=== PATIENT | female | born 2000 | race Hispanic/Latino ===

== ENCOUNTER 2023-09-05 10:42 | Emergency (ER) | payer MEDICAID, OTHER ==
[~2023-09-05] VITALS: Ht 154.9 cm; Wt 44.0 kg
[2023-09-05 11:01] VITALS: BP 115/79; PULSE 90; RESP 16; O2SAT 100
[2023-09-05] MEDS ORDERED: PREDNISONE 20 MG TABLET PO ONE (11:30)
[2023-09-05] MEDS ORDERED: PRED20TA3 PO (11:31)
[2023-09-05] MEDS ORDERED: ERYT1OIN7 OP (11:31)
== END 2023-09-05 11:45 | disposition home or self-care (01) ==
LOC: EDH 10:42
DX: H05.223 Edema of bilateral orbit (principal); Z79.899 Other long term (current) drug therapy

== ENCOUNTER 2023-12-05 00:35 | Emergency (ER) | payer OTHER ==
[~2023-12-05] VITALS: Ht 157.5 cm; Wt 45.4 kg
[~2023-12-05 00:35] MED LIST: ERYT1OIN7 OP; PRED20TA3 PO
[2023-12-05] MEDS: DiphenhydrAMINE HCL 50 MG/ML VIAL IV ONE (03:18)
[2023-12-05] MEDS ORDERED: EPIN0.3P3 IJ (03:39)
[2023-12-05] MEDS ORDERED: CETI10CA5 PO (03:39)
[2023-12-05] MEDS ORDERED: CEPH500T PO (03:39)
[2023-12-05] MEDS: CEPHALEXIN 500 MG CAPSULE PO ONE (04:03)
[2023-12-05 04:13] VITALS: BP 113/69; PULSE 78; RESP 18; O2SAT 100
== END 2023-12-05 04:15 | disposition home or self-care (01) ==
LOC: EDH 00:35
DX: T78.49XA Other allergy, initial encounter (principal); Z79.899 Other long term (current) drug therapy; X58.XXXA Exposure to other specified factors, initial encounter
CPT/HCPCS: 99283; 96374; J1200

== ENCOUNTER 2024-04-21 06:24 | Emergency (ER) | payer OTHER ==
[~2024-04-21] VITALS: Ht 157.5 cm; Wt 45.8 kg
[~2024-04-21 06:24] MED LIST changes: +CEPH500T PO; +CETI10CA5 PO; +EPIN0.3P3 IJ
[2024-04-21] MEDS: FAMOTIDINE 20MG VIAL IV ONE (07:48)
[2024-04-21] MEDS: SOLU-MEDROL 125MG VIAL IVP ONE (07:48)
[2024-04-21] MEDS: DiphenhydrAMINE HCL 50 MG/ML VIAL IV ONE (09:08)
[2024-04-21 09:55] VITALS: BP 113/82; PULSE 88; RESP 18; O2SAT 100
== END 2024-04-21 10:54 | disposition home or self-care (01) ==
LOC: EDH 06:24
DX: H57.11 Ocular pain, right eye (principal); R60.9 Edema, unspecified; Z79.899 Other long term (current) drug therapy; Z88.8 Allergy status to other drugs, medicaments and biological substances
CPT/HCPCS: 99284; 96374; 96375; J1200; J3490; J2919

== ENCOUNTER 2024-06-03 06:30 | Emergency (ER) | payer SELFPAY ==
[~2024-06-03] VITALS: Ht 157.5 cm; Wt 46.7 kg
[2024-06-03 07:04] LABS: HEMATOCRIT 37.4 % (36-48); MEAN CORPUSCULAR HEMOGLOBIN 27.5 pg (27.0-33.0); MEAN CORPUSCULAR HGB CONC 32.4 g/dL (32.0-36.0); RED BLOOD CELL COUNT(AUTO) 4.4 MIL/uL (4.00-5.50); RED CELL DISTRIBUTION WIDTH 13.9 % (11.0-15.5)
[2024-06-03 07:10] LABS: CREATININE 0.6 mg/dL (0.5-1.0); POTASSIUM 3.5 mmol/L (3.5-5.1)
[2024-06-03] MEDS: FAMOTIDINE 20MG VIAL IV ONE (08:42)
[2024-06-03] MEDS: Solu-medROL 40MG VIAL IVP ONE (08:42)
[2024-06-03 10:52] VITALS: BP 114/75; PULSE 85; RESP 18; TEMP 98.4; O2SAT 98
== END 2024-06-03 10:52 | disposition home or self-care (01) ==
LOC: EDH 06:30
DX: T78.3XXA Angioneurotic edema, initial encounter (principal); Z79.899 Other long term (current) drug therapy; Z88.8 Allergy status to other drugs, medicaments and biological substances; X58.XXXA Exposure to other specified factors, initial encounter; Y93.89 Activity, other specified; Y92.89 Other specified places as the place of occurrence of the external cause; Y99.8 Other external cause status
CPT/HCPCS: 99284; 96374; 96375; 80048; 84703; 85027; 36415; J3490; J2919

== ENCOUNTER 2025-05-12 08:16 | Emergency (ER) | payer SELFPAY ==
[~2025-05-12] VITALS: Ht 157.5 cm; Wt 48.1 kg
--- NOTE | 2025-05-12 08:50 | ERN ---
General Chief Complaint: Pelvic Pain Stated Complaint: PELVIC, CONSTIPATION Time Seen by MD: 08:18 Source: patient History of Present Illness Initial Comments Patient is a 22 male coming in complaining of lower abdominal discomfort. Patient states that this has been ongoing for one week. Along with the this is states that he has not defecated completely. No fever or chills. Allergies: Coded Allergies: nitrofurantoin (Unverified Allergy, Unknown, 12/05/23) Home Meds Active Scripts Epinephrine (Epipen 2-Bryce) 0.3 Mg/0.3 Ml Auto.injct, 0.3 MG IJ AD, #2 CARTRIDGE 2 Refills Prov:MAKR OLEARY Sr., MD 12/05/23 Cetirizine HCl (Zyrtec) 10 Mg Capsule, 10 MG PO BID, #20 CAP 2 Refills Prov:MARK OLEARY Sr., MD 12/05/23 Cephalexin (Cephalexin) 500 Mg Tablet, 500 MG PO TID, #10 TAB 30 Refills Prov:MARK OLEARY Sr., MD 12/05/23 Erythromycin Base (Erythromycin) 5 Mg/Gram (0.5 %) Oint...g., 0.5 INCH OP QID for 5 Days, #1 TUBE 0 Refills Prov:ISMAEL GUEVARA 09/05/23 Prednisone (Prednisone) 20 Mg Tablet, 40 MG PO ONCE for 4 Days, #8 TAB 0 Refills Prov:ISMAEL GUEVARA CLINICAL ADMINISTRATOR 09/05/23 Past Medical History Past Medical History: No Pertinent History, Other Medical History Other: H-PYLORI Past Surgical History: None Female( History) LMP: Apr 21, 2025 ROS Dictation CONSTITUTIONAL: No chills, no fever, no weakness, no diaphoresis, no malaise. HEAD/FACE: No signs of trauma. EENT: No eye pain, no blurred vision, no tearing, no double vision, no ear pain, no ear discharge, no nose pain, no nasal congestion, no throat pain, no throat swelling, no mouth pain. RESPIRATORY: No cough, no orthopnea, no SOB, no stridor, no wheezing. CARDIOVASCULAR: No chest pain, no edema, no palpitations, no syncope. GASTROINTESTINAL/ABDOMINAL: abdominal pain, no constipation, no diarrhea, no nausea, no vomiting. GENITOURINARY: No abnormal discharge, no dysuria, no frequent urination, no he maturia. No complaints of pain in the genitals. MUSCULOSKELETAL: No back pain, no gout, no joint pain, no joint swelling, no m uscle pain, no muscle stiffness, no neck pain. INTEGUMENTARY: No change in color, no change in hair/nails, no dryness, no lesi on, no lumps, no rash. NEUROLOGICAL/PSYCH: No anxiety, not depressed, no emotional problem, no headache, no numbness, no pre-existing deficit, no history of seizures, no tremors, no weakness. HEMATOLOGIC/LYMPHATIC: Not anemic, no history of blood clots, no apparent bleeding, no bruising, glands not swollen. All Systems Negative, Except as Noted. Physical Exam Physical Exam Dictation VITAL SIGNS: Reviewed. GENERAL APPEARANCE: Alert, oriented x3, no acute distress, obese. HEAD AND FACE: Non-traumatic. EYES: PERRL, pink conjunctivas, eyelid no trauma, anterior chamber clear. EARS: Pinnas intact and no signs of trauma or erythema. Ear canals clear and no discharge. TMs no erythema. NOSE: No discharge, no bleeding. OROPHARYNX: Mouth normal, teeth no caries, tongue pink. Pharynx clear, no erythema. Tonsils no exudates, no abscesses noted. Mucous membrane moist. NECK: Supple, non-tender, no thyromegaly, no masses, no JVD, no bruits. BREAST: Deferred. CHEST: No tenderness, no crepitus, no paradoxical movement, no retractions. LUNGS: Clear, well-ventilated, symmetric, no rales, no wheezing, no rhonchi, no stridor, good breath sounds bilaterally. HEART: Regular rate, regular rhythm, no murmur, no gallops. VASCULAR: No peripheral edema. ABDOMEN: Soft, positive bowel sounds, nondistended, no guarding, lower abdominal tender, no rebound, no masses no hepatomegaly, no splenomegaly, no Dee's sign, no hernias. RECTAL: Deferred. GENITAL: Deferred. NEUROLOGICAL: Normal speech, gross motor function intact, gross sensory function intact. MUSCULOSKELETAL: Neck nontender, full range of motion, back nontender, full range of motion. EXTREMITIES: Nontender, full range of motion. SKIN: Color pink, dry, no turgor, no rash, no lacerations, no abrasions, no contusions. LYMPHATICS: Deferred. Results Laboratory and Microbiology Lab and Micro Result Laboratory Tests Test 05/12/25 08:50 05/12/25 09:17 Urine Color YELLOW (YELLOW) Urine Appearance CLEAR (CLEAR) Urine pH 6.5 (5.0-8.0) Urine Specific [place] 1.022 (1.001-1.031) Urine Protein NEGATIVE mg/dL (NEGATIVE) Urine Glucose (UA) NEGATIVE mg/dL (NEGATIVE) Urine Ketones NEGATIVE mg/dL (NEGATIVE) Urine Occult Blood NEGATIVE (NEGATIVE) Urine Nitrate NEGATIVE (NEGATIVE) Urine Bilirubin NEGATIVE mg/dL (NEGATIVE) Urine Urobilinogen 0.2 mg/dL (0.2-1.0) Urine Leukocyte Esterase 25 Cindi/uL (NEGATIVE) H Urine RBC 2-5 /HPF (0-1) H Urine WBC 6-10 /HPF (0-1) H Urine Squamous Epithelial Cells MANY /HPF (0-2) Urine Bacteria None /HPF (None Seen) Urine HCG, Qualitative NEGATIVE (NEGATIVE) White Blood Count 7.3 K/uL (4.8-10.8) Red Blood Count 4.91 MIL/uL (4.00-5.50) Hemoglobin 14.0 g/dL (12.0-16.0) Hematocrit 42.1 % (36-48) Mean Corpuscular Volume 85.7 fL (79-99) Mean Corpuscular Hemoglobin 28.5 pg (27.0-33.0) Mean Corpuscular Hemoglobin Concent 33.3 g/dL (32.0-36.0) Red Cell Distribution Width 13.0 % (11.0-15.5) Platelet Count 200 K/uL (130-400) Mean Platelet Volume 11.2 fL (7.5-10.5) H Immature Granulocyte % (Auto) 0.1 % (0-1) Neutrophils (%) (Auto) 62.4 % (40.0-77.0) Lymphocytes (%) (Auto) 24.1 % (21.0-51.0) Monocytes (%) (Auto) 6.6 % (3.0-13.0) Eosinophils (%) (Auto) 5.8 % (0.0-8.0) Basophils (%) (Auto) 1.0 % (0.0-5.0) Neutrophils # (Auto) 4.5 K/uL (1.8-7.7) Lymphocytes # (Auto) 1.8 K/uL (1.0-4.8) Monocytes # (Auto) 0.5 K/uL (0.1-1.0) Eosinophils # (Auto) 0.42 K/uL (0.00-0.70) Basophils # (Auto) 0.07 K/uL (0.00-0.20) Absolute Immature Granulocyte (auto 0.01 K/uL (0-1) Nucleated Red Blood Cells 0.0 % (0.0-0.19) Sodium Level 129 mmol/L (136-145) L Potassium Level 4.2 mmol/L (3.5-5.1) Chloride Level 101 mmol/L (101-111) Carbon Dioxide Level 28 mmol/L (21-32) Blood Urea Nitrogen 7 mg/dL (7-18) Creatinine 0.6 mg/dL (0.5-1.0) Glomerular Filtration Rate Calc 130 mL/min (>90) Random Glucose 89 mg/dL (70-105) Total Calcium 9.2 mg/dL (8.5-10.1) Labs Reviewed?: Yes MDM MDM: Differential diagnosis: UTI, CONSTIPATION, GASTRITIS Rationale: Tests considered and ordered secondary to shared decision making include: Previous outside records reviewed: Old ER visits. Risk of complication and/or morbidity or mortality of patient management: None Medications-Per medication reconciliation Need for hospitalization: Patient does not meet criteria for hospitalization. Need for emergency major/minor surgery: No PATIENT IS A 24-YEAR-OLD FEMALE COMING IN COMPLAINING OF ABDOMINAL DISCOMFORT. PER PATIENT THE ABDOMINAL DISCOMFORT IN HIS IN THE LOWER PART OF THE ABDOMEN. LABORATORY WORKUP DISCLOSE A URINARY TRACT INFECTION. PATIENT WILL BE DISCHARGED IN STABLE CONDITION WITH A DIAGNOSIS OF UTI. PATIENT ALSO STATES THAT SHE HAS BEEN HAVING CONSTIPATION ISSUES. PATIENT RECEIVED ONE DOSE OF LACTULOSE I DID ADVISED HER APPROPRIATE FOLLOW UP WITH PCP FOR LONG-TERM MANAGEMENT OF SYMPTOMS. ED Course Orders Procedure Category Date Status Time Cbc With Differential LAB 05/12/25 Complete 08:22 Basic Metabolic Panel LAB 05/12/25 Complete 08:22 Urinalysis LAB 05/12/25 Complete W/Microscopic 08:22 ,Urine Test LAB 05/12/25 Complete 08: Lactulose 20 Gm/30 Ml PHA 05/12/25 Complete Udcup (Constulose 08:30 Culture Urine LIZZ 05/12/25 Logged 09:34 Current Medications Medications (Trade) Dose Ordered Sig/Fiona Route PRN Reason Start Time Stop Time Status Last Admin Dose Admin Lactulose (Constulose 20gm/ 30ml Udcup) 20 gm ONCE ONCE PO 05/12/25 08:30 05/12/25 08:31 DC 05/12/25 09:13 Vital Signs Date Time Temp Pulse Resp B/P (MAP) Pulse Ox O2 Delivery O2 Flow Rate FiO2 05/12/25 08:20 98.2 87 16 126/75 100 Room Air* 0 21 05/12/25 08:17 98.2 87 16 126/75 100 Room Air 0 DX & DISP Disposition: Discharge Departure Impression: Primary Impression: Constipation Additional Impression: UTI (urinary tract infection) Condition: Stable Scripts Cephalexin Monohydrate (Keflex) 500 Mg Cap 1 CAP PO BID for 7 Days, #14 CAP 0 Refills Prov: MARIA EUGENIA RODRIGUEZ MD 05/12/25 Additional Instructions: FOLLOW-UP WITH PRIMARY CARE PROVIDER IN 1 TO 2 DAYS. TAKE MEDICATIONS DIRECTED HERE IN THE EMERGENCY ROOM. OKAY TO CONTINUE HOME MEDICATIONS UNLESS OTHERWISE DISCUSSED DURING YOUR VISIT IN THE EMERGENCY ROOM TODAY. RETURN TO [facility] EMERGENCY ROOM IF SYMPTOMS WORSEN OR IF THERE IS NO IMPROVEMENT. CALL 911 IF YOU NEED IMMEDIATE ASSISTANCE. TAKE TYLENOL [id number] NEEDED AND IF NO CONTRAINDICATIONS ARE PRESENT. INCREASE ORAL HYDRATION. A WOUND CULTURE OR URINE CULTURE WAS ORDERED HERE IN THE EMERGENCY ROOM DEPARTMENT PLEASE FOLLOW-UP WITH PRIMARY CARE PROVIDER AND ADVISE THEM TO GET REPORTS FROM OUR FACILITY. IF YOU HAD ANY JORGE WRAP/SPLINTS THAT WERE APPLIED HERE, PLEASE DO NOT REMOVE THEM UNTIL YOU SEE YOUR PRIMARY CARE OR SPECIALTY. REFERRALS: Referrals: DIANA MCCRACKEN DO (PCP) Time of Disposition: 09:51 MARIA EUGENIA RODRIGUEZ MD May 12, 2025 08:50
[2025-05-12] MEDS: LACTULOSE 20 GM/30 ML UDCUP PO ONE (09:13)
[2025-05-12 09:21] LABS: IMMATURE GRANULOCYTE ABSOLUTE 0.01 K/uL (0-1); NUCLEATED RED BLOOD CELLS 0.0 % (0.0-0.19); PLATELET COUNT (AUTO) 200 K/uL (130-400); RED BLOOD CELL COUNT(AUTO) 4.91 MIL/uL (4.00-5.50); RED CELL DISTRIBUTION WIDTH 13.0 % (11.0-15.5); WHITE BLOOD COUNT (AUTO) 7.3 K/uL (4.8-10.8)
[2025-05-12 09:28] LABS: CREATININE 0.6 mg/dL (0.5-1.0); GLOMERULAR FILTR. RATE CALC 130.0 mL/min (>90); GLUCOSE,RANDOM 89.0 mg/dL (70-105); SODIUM SERUM 129.0 mmol/L (136-145); UREA NITROGEN, BLOOD 7.0 mg/dL (7-18)
[2025-05-12 09:29] LABS: HCG,QUALITATIVE URINE NEGATIVE (NEGATIVE)
[2025-05-12 09:32] LABS: APPEARANCE,URINE CLEAR (CLEAR); GLUCOSE, URINE (UA) NEGATIVE (NEGATIVE); LEUKOCYTE ESTERASE ,URINE 25 Leu/uL (NEGATIVE); NITRATE,URINE NEGATIVE (NEGATIVE); OCCULT BLOOD,URINE NEGATIVE (NEGATIVE); SQUAMOUS EPITHELIAL CELL,UR MANY /HPF (0-2)
[2025-05-12] MEDS ORDERED: CEPH500B PO (09:52)
[2025-05-12 10:00] VITALS: BP 120/72; PULSE 75; RESP 16; TEMP 98.2; O2SAT 100
== END 2025-05-12 10:19 | disposition home or self-care (01) ==
LOC: EDH 08:16
DX: K59.00 Constipation, unspecified (principal); N39.0 Urinary tract infection, site not specified; Z88.1 Allergy status to other antibiotic agents
CPT/HCPCS: 36415; 80048; 81001; 81025; 85025; 87086; 87186; 99283